=== PATIENT | female | born 1995 | race African-American/Black ===

== ENCOUNTER 2016-05-26 16:31 | Emergency (ER) | payer MEDICAID, OTHER ==
[~2016-05-26] VITALS: Ht 167.6 cm; Wt 67.0 kg
[2016-05-26 19:13] LABS: BASOPHILS % 1.1 % (0.0-2.0); EOSINOPHILS % 1.2 % (0.0-5.0); HEMATOCRIT. 35.5 % (36.0-48.0); HEMOGLOBIN. 11.6 g/dL (12.0-16.0); LYMPHOCYTES % 26.1 % (20.0-50.0); MEAN CORPUSCULAR HEMOGLOBIN 30.3 pg (28.0-32.0); MEAN CORPUSCULAR HGB CONC 32.7 g/dL (31.0-37.0); MEAN CORPUSCULAR VOLUME 92.6 fL (81.0-99.0); MEAN PLATELET VOLUME 9.8 fl (7.4-10.4); MONOCYTES % 8.1 % (2.0-8.0); NEUTROPHILS % 63.5 % (40.0-76.0); PLATELET 237 x1000/uL (130-400); RED BLOOD CELL COUNT 3.84 mill/uL (4.2-5.4); RED CELL DISTRIBUTION WIDTH 14.6 % (11.6-14.6); WHITE BLOOD COUNT 9.3 x1000/uL (4.5-11.0)
[2016-05-26 19:15] LABS: CHLORIDE 105 mEq/L (98-107); INDEX HEMOLYSI 1 (1-3); INDEX ICTERIC 1 (1-4); INDEX LIPEMIC 1 (1-3)
[2016-05-26 19:19] LABS: ANION GAP 14; CALCIUM 8.5 mg/dL (8.5-10.1); CARBON DIOXIDE 22 mEq/L (21-32); UREA NITROGEN BLOOD 6 mg/dL (7-21)
[2016-05-26 19:23] LABS: eGFR > 60 mL/min (>60)
[2016-05-26 19:38] LABS: B-HCG QUANTITATIVE 22917 mIU/mL (<3)
[2016-05-26 21:22] LABS: CLARITY URINE CLEAR (CLEAR); COLOR URINE YELLOW (YELLOW); GLUCOSE URINE NEGATIVE (NEGATIVE); KETONES URINE 1+ (NEGATIVE); LEUKOCYTE ESTERASE URINE TRACE (NEGATIVE); NITRITE URINE NEGATIVE (NEGATIVE); OCCULT BLOOD URINE 3+ (NEGATIVE); PROTEIN URINE NEGATIVE (NEGATIVE); SPECIFIC GRAVITY URINE 1.016 (1.005-1.030); UROBILINOGEN URINE 0.2 E.U./dL (0.2-1.0)
[2016-05-26 21:35] LABS: BACTERIA URINE 1+; RBC URINE 0-2 /hpf (0-2); SQUAMOUS EPITHELIAL CELL URINE 1+ /lpf (RARE/1+); WBC URINE 0-2 /hpf (0-2)
[2016-05-26 22:35] VITALS: BP 123/65
== END 2016-05-26 23:00 | disposition home or self-care (01) ==
LOC: ER 18:58
DX: O20.0 Threatened abortion (principal); O23.41 Unspecified infection of urinary tract in pregnancy, first trimester; Z3A.01 Less than 8 weeks gestation of pregnancy; O26.21 Pregnancy care for patient with recurrent pregnancy loss, first trimester
CPT/HCPCS: 36415; 76801; 80048; 81001; 81025; 84702; 85025; 86850; 86900; 99285

== ENCOUNTER 2017-09-20 23:57 | Emergency (ER) | payer OTHER ==
[~2017-09-20] VITALS: Ht 165.1 cm; Wt 63.0 kg
[2017-09-21] MEDS ORDERED: SODIUM CHLORIDE 0.9% 1,000 ML IV ONE (00:53)
[2017-09-21] MEDS ORDERED: DIPHENHYDRAMINE 50MG/ML VIAL IV STA (00:53)
[2017-09-21 01:11] LABS: *AMPHETAMINES SCREEN URINE NEGATIVE (NEGATIVE)
[2017-09-21 01:11] LABS: BASOPHILS % 1.8 % (0.0-2.0); EOSINOPHILS % 2.1 % (0.0-5.0); HEMATOCRIT. 32.9 % (36.0-48.0); LYMPHOCYTES % 31.6 % (20.0-50.0); MEAN CORPUSCULAR HEMOGLOBIN 30.9 pg (28.0-32.0); MEAN CORPUSCULAR VOLUME 92.2 fL (81.0-99.0); MEAN PLATELET VOLUME 9.8 fl (7.4-10.4); MONOCYTES % 6.4 % (2.0-8.0); NEUTROPHILS % 58.1 % (40.0-76.0); PLATELET 262 x1000/uL (130-400); RED BLOOD CELL COUNT 3.56 mill/uL (4.2-5.4)
[2017-09-21 01:12] LABS: *BARBITURATES SCREEN URINE NEGATIVE (NEGATIVE); *BENZODIAZEPINES SCREEN URINE NEGATIVE (NEGATIVE); *COCAINE SCREEN URINE NEGATIVE (NEGATIVE); CANNABINOID URINE SCREEN PRESUMTIVE POSITIVE (NEGATIVE); METHADONE URINE SCREEN NEGATIVE (NEGATIVE); OPIATES URINE SCREEN NEGATIVE (NEGATIVE); PHENCYCLIDINE URINE SCREEN NEGATIVE (NEGATIVE)
[2017-09-21 01:18] LABS: CHLORIDE 109 mEq/L (98-107)
[2017-09-21 01:22] LABS: ETHANOL BLOOD 28 mg/dL
[2017-09-21 01:27] LABS: CREATINE KINASE 176 IU/L (26-192)
[2017-09-21 02:30] VITALS: BP 128/80
== END 2017-09-21 02:35 | disposition home or self-care (01) ==
LOC: ER 23:57
DX: F10.129 Alcohol abuse with intoxication, unspecified (principal); F12.10 Cannabis abuse, uncomplicated; R41.82 Altered mental status, unspecified; R03.0 Elevated blood-pressure reading, without diagnosis of hypertension; Y90.1 Blood alcohol level of 20-39 mg/100 ml
CPT/HCPCS: 36415; 80053; 80305; 80307; 80329; 81025; 82550; 84443; 85025; 96361; 96374; 99284; G0482; J1200; J7030